=== PATIENT | male | born 1970 | race Caucasian/White ===

== ENCOUNTER 2016-04-28 17:11 | Emergency (ER) | payer MEDICAID ==
[~2016-04-28] VITALS: Ht 180.3 cm; Wt 188.2 kg
[2016-04-28] MEDS ORDERED: KEFLEX 500MG.500 MG PO (17:43)
--- NOTE | 2016-04-28 17:45 | Emergency Room Report ---
History of Present Illness Time Seen by [id number] Presenting Problem in Triage Pt arrived:Walked Presenting Problem:PT RIGHT RING FINGER IS SWOLLEN AND TENDER ON THE TIP Onset of symptoms date/time:/ or onset unknown for:MEDICAL HX UNKNOWN Treatment Prior to Arrival: DIRECTOR TRANSLATION Provided by: Sepsis Risk Assessment: Temp: 98.7 B/P: MAP: Pulse: 74 Resp: 16 Recent fever? N Clinical Suspician of Infection? N Mental Status: 1 - Regular (Normal Baseline) Sepsis Risk:Low Sepsis Risk Have you (or family members/close friends) recently traveled outside the [place]? N If Yes, where/when: Have you had exposure to infectious disease within the past month? N TB? Other? Specify: Source patient, RN notes reviewed, family Exam Limitations no limitations Comment This is a 45-year-old right-hand dominant male who presents to the emergency department for swelling to the volar surface of the RIGHT ring finger. He noticed it last night, tried to make a stab incision to drain fluid and got some pus and blood out of the wound. He denies any trauma to the area. No fevers. Sensation is intact. ALLERGIES Coded Allergies: No Known Allergies (04/28/16) History Medical History General CAD? No Angina: No TN: No Hypertension? No Hyperlipidemia? No CHF? No DVT? No PE? No COPD? No Asthma? No Anemia? No GERD? No Gastric ulcers? No GI Bleed? No Hernia? No Thyroid Problems? No Hypothyroidism? No CVA? No Seizures? No Diabetes? No Renal Insuffiency? No End Stage Renal Disease? No UTI? No Stones? No BPH? No GB Disease: No Nephritic Syndrome? No Asplenia? No Hepatitis? No Sickle Cell Disease? No Arthritis? No Migraines? No Glaucoma? No MRSA? No HIV? No TB? No Anxiety? No Depression? No Cancer? No Site: N More? No Immunization Hx DT/Tetanus 1-4 Years Ago Surgical Hx Previous Surgery?Y TOES Social History Smoking Hx Smoker: Never Smoker Tobacco: No Review of Systems All Other Systems Reviewed and Negative Physical Exam Vital Signs Vital Signs Date Time Temp Pulse Resp B/P Pulse O2 O2 Flow FiO2 Ox Delivery Rate 04/28 1716 98.7 74 16 98 General Appearance normal appearance, WD/WN Respiratory Status Yes: trachea midline. No: respiratory distress. Cardiovascular normal exam, regular rate/rhythm, normal peripheral pulses Gastrointestinal normal exam, non tender, soft Extremities normal range of motion, no swelling or deformity except to the volar surface of the RIGHT ring finger. No paronychia. There does appear to be a felon was some swelling distal to the DIP of the finger pad of the RIGHT ring finger. No signs of trauma except for the small stab incision he made last night. Flexion and extension intact at the DIP. Sensation intact with capillary refill less than 2 seconds Neurologic alert, no motor/sensory deficits Skin intact, normal color, warm/dry Medical Decision Making LABS/Meds/Orders Pt receiving controlled substance in ED? No Results/Orders Current Medication Orders Sig/Edwin Start time Last Medication Dose Route Stop Time Status Admin Lidocaine HCl 0 .STK-MED ONE 04/28 1724 DC .ROUTE Procedures Incision and Drainage Incision and Drainage Risks/benefits discussed with pt/guardian? Yes I & D Procedure Simple, Scalpel incision cm-, Irrigation ml-, Sterile Dressing Applied. Progress Small 1.0 centimeter linear incision made along the ulnar aspect of the finger pad on the RIGHT ring finger. Fingerpad was undermined with hemostats. No purulent material, minimal serosanguineous fluid drained. Clean bandage placed. Departure Departure Disposition DC Home or Self Care(routine) Clinical Impression Primary Impression: Felon of finger of right hand Condition STABLE Referrals AMANDA MOTT (Family) Additional Instructions Keep wound dry and clean. Change bandage daily. Return to the emergency department or your primary care physician if you notice signs of redness, swelling, increasing pain or foul-smelling discharge from the wound. Take antibiotics until complete. Follow-up with primary care provider in 2 days for wound recheck. Keep the wound covered until healed. Prescriptions Current Visit Scripts CEPHALEXIN (Keflex 500MG Capsule) 500 MG PO QID 7 Days ED Critical Care Critical Care No Comments Patient with felon of the RIGHT finger. Ulnar incision made and clean dressing placed. Patient will be placed on Keflex. There are no signs of flexor tenosynovitis at this time. Swelling does not extend past the DIP. Mandatory wound check in 2 days. Given explicit wound care instructions. at 1110
[2016-04-28 17:49] VITALS: BP 170/98
== END 2016-04-28 17:50 | disposition home or self-care (01) ==
LOC: ER 17:11
PROC: 0J9J0ZZ Drainage of Right Hand Subcutaneous Tissue and Fascia, Open Approach (ICD-10-PCS; principal; 2016-04-28)
DX: L03.011 Cellulitis of right finger (principal)